=== PATIENT | female | born 1995 | race Caucasian/White ===

== ENCOUNTER 2017-01-26 02:31 | Emergency (ER) | payer BC, OTHER ==
[~2017-01-26] VITALS: Ht 175.3 cm; Wt 69.5 kg
[2017-01-26 02:36] VITALS: Ht 175.3 cm; Wt 69.5 kg
--- NOTE | 2017-01-26 03:15 | ERD ---
ER Documentation Chief Complaint Date/Time DATE: 01/26/17 TIME: 02:58 Chief Complaint lump on left breast HPI 21 yo female presents here in the emergency department for complaints of a lump in the left breast area, has had it for a few months now, and ultrasound done before, was found to have the breast lump, she feels that is bigger. Patient denies any redness or swelling. Patient denies any fever or chills. Patient denies any pain. Patient is worries since she feels it getting bigger. ROS All systems reviewed and are negative except as per history of present illness. Medications Home Meds Reported Medications [none] Unknown Strength No Conflict Check 01/26/17 Allergies Allergies: Coded Allergies: No Known Allergy (Unverified , 01/26/17) PMhx/Soc Medical and Surgical Hx: pt denies Medical Hx, pt denies Surgical Hx History of Surgery: No Anesthesia Reaction: No Hx Neurological Disorder: No Hx Respiratory Disorders: No Hx Cardiac Disorders: No Hx Psychiatric Problems: No Hx Miscellaneous Medical Probl: No Hx Alcohol Use: No Hx Substance Use: No Hx Tobacco Use: No Smoking Status: Never smoker FmHx Family History: No coronary disease, No diabetes, No other Physical Exam Vitals Vital Signs Date Time Temp Pulse Resp B/P Pulse Ox O2 Delivery O2 Flow Rate FiO2 01/26/17 02:36 97.8 78 20 117/75 100 Physical Exam GENERAL: The patient is well developed and appropriate for usual state of health, in no apparent distress. CHEST: Clear to auscultation bilaterally. There are no rales, wheezes or rhonchi. Patient has palpable 2.3 cm lump on the left breast, 3:00. Nontender, no erythema, no nipple discharge. No deformity. Right breast is normal, no lumps noted. HEART: Regular rate and rhythm. No murmurs, clicks, rubs or gallops. No S3 or S4. ABDOMEN: Soft, nontender and nondistended. Good bowel sounds. No rebound or guarding. No gross peritonitis. No gross organomegaly or masses. No Sheets sign or McBurney point tenderness. BACK: No midline or flank tenderness. EXTREMITIES: Equal pulses bilaterally. There is no peripheral clubbing, cyanosis or edema. No focal swelling or erythema. Full range of motion. Grossly neurovascularly intact. NEURO: Alert and oriented. Cranial nerves 2-12 intact. Motor strength in all 4 extremities with 5/5 strength. Sensation grossly intact. Normal speech and gait. SKIN: There is no apparent rash or petechia. The skin is warm and dry. HEMATOLOGIC AND LYMPHATIC: There is no evidence of excessive bruising or lymphedema. No gross cervical, axillary, or inguinal lymphadenopathy. Procedures/MDM Medical decision making: Patient has a lump on the left breast area, no cellulitis, no abscesses noted, and the discharge. No symptoms of sepsis. Patient was advised to see gynecology specialist for repeat ultrasound is necessary, patient already had a previous ultrasound done, was found to be benign. Patient is not in any pain. Patient does not have any fever. Patient was advised to return to emergency department for redness swelling deformity, or any other worsening symptoms. Departure Diagnosis: Primary Impression: Breast lump on left side at 3 o'clock position Condition: Stable Patient Instructions: Breast Mass, Uncertain Cause Referrals: [facility] YOU HAVE RECEIVED A MEDICAL SCREENING EXAM AND THE RESULTS INDICATE THAT YOU DO NOT HAVE A CONDITION THAT REQUIRES URGENT TREATMENT IN THE EMERGENCY DEPARTMENT. FURTHER EVALUATION AND TREATMENT OF YOUR CONDITION CAN WAIT UNTIL YOU ARE SEEN IN YOUR DOCTORS OFFICE WITHIN THE NEXT 1-2 DAYS. IT IS YOUR RESPONSIBILITY TO MAKE AN APPOINTMENT FOR FOLOW-UP CARE. IF YOU HAVE A PRIMARY DOCTOR --you should call your primary doctor and schedule an appointment IF YOU DO NOT HAVE A PRIMARY DOCTOR YOU CAN CALL OUR PHYSICIAN REFERRAL HOTLINE AT IF YOU CAN NOT AFFORD TO SEE A PHYSICIAN YOU CAN CHOSE FROM THE FOLLOWING [facility] CLINICS [facility] [address] [facility]. [facility] [address] [facility] [address] [facility]. [facility] [address] [facility]. [facility] [address] [facility]. [facility]. [address] [facility] YOU HAVE RECEIVED A MEDICAL SCREENING EXAM AND THE RESULTS INDICATE THAT YOU DO NOT HAVE A CONDITION THAT REQUIRES URGENT TREATMENT IN THE EMERGENCY DEPARTMENT. FURTHER EVALUATION AND TREATMENT OF YOUR CONDITION CAN WAIT UNTIL YOU ARE SEEN IN YOUR DOCTORS OFFICE WITHIN THE NEXT 1-2 DAYS. IT IS YOUR RESPONSIBILITY TO MAKE AN APPOINTMENT FOR FOLOW-UP CARE. IF YOU HAVE A PRIMARY DOCTOR --you should call your primary doctor and schedule and appointment IF YOU DO NOT HAVE A PRIMARY DOCTOR YOU CAN CALL OUR PHYSICIAN REFERRAL HOTLINE AT . IF YOU CAN NOT AFFORD TO SEE A PHYSICIAN YOU CAN CHOSE FROM THE FOLLOWING [facility] INSTITUTIONS: [facility] [address] [place] [address] [facility] [address] [place] [address] [facility] [address] [place] [address] CLAIM [place] [address] [facility] [address] [place] [address] OFFICE FAX [facility] [address] [place] [address] [address] G[address] [address] [place] [address] [address] [facility] [address] [facility], [address] [address] [address] [place] [address] [facility] [address] [place] [address] [address] [facility] [id number] [address] [place] [address] [facility] [address] [address] [address] [facility] [address], [facility] [address] [address] [address] [place], [place] [address] Additional Instructions: see gyne specialist for further eval and radiology exam JO-ANN WONG NP Jan 26, 2017 03:08
== END 2017-01-26 03:12 | disposition home or self-care (01) ==
LOC: FTE 02:31
DX: N63 Unspecified lump in breast (principal)
CPT/HCPCS: 99282